=== PATIENT | male | born 1990 | race Two or more races ===

== ENCOUNTER → 2017-04-25 | Outpatient (CLI) | payer SELFPAY ==
--- NOTE | 2017-04-25 09:24 | KCIC ---
CHEST PA LATERAL History: Shortness of air for 3 months Comparison: None. Findings: There is no infiltrate, pneumothorax, or effusion. The cardiac silhouette is within normal limits in size. The trachea is in the midline. No acute osseous abnormality is identified. Impression: 1. There is no evidence of acute cardiopulmonary disease. Electronically signed by: Joni Decker MD (04/25/2017 9:21 AM) [email or web address]
== END | disposition home or self-care (01) ==
LOC: KCIC 08:46
DX: R06.02 Shortness of breath (principal)
CPT/HCPCS: 71020